=== PATIENT | female | born 1990 | race Caucasian/White ===

== ENCOUNTER 2022-02-17 18:05 | Inpatient (IN) | payer OTHER ==
[~2022-02-17] VITALS: Ht 167.6 cm; Wt 3.2 kg
[~2022-02-17 18:05] MED LIST: DOXYCYCLINE HY100 M2 PO
== END 2022-02-23 15:02 | disposition home or self-care (01) | DRG 788 ==
LOC: OBS/DEL 18:05 → LDR 02-18 16:34 → OB/GYN 02-18 16:34 → LDR 02-19 00:40 → O/R 02-20 13:42 → OB/GYN 02-20 14:13 → O/R 02-20 15:09 → OB/GYN 02-20 15:18
PROVIDERS: ADMIT Obstetrics & Gynecology Obstetrics; ATTEND Obstetrics & Gynecology Obstetrics
PROC: 4A1HXCZ Monitoring of Products of Conception, Cardiac Rate, External Approach (ICD-10-PCS; 2022-02-18)
PROC: 10D00Z1 Extraction of Products of Conception, Low, Open Approach (ICD-10-PCS; principal; 2022-02-20 13:30)
DX: O62.0 Primary inadequate contractions (principal); O99.820 Streptococcus B carrier state complicating pregnancy; Z3A.40 40 weeks gestation of pregnancy; Z37.0 Single live birth; Z20.822 Contact with and (suspected) exposure to COVID-19